=== PATIENT | female | born 1945 | race Caucasian/White ===

== ENCOUNTER → 2017-02-10 | Outpatient (CLI) | payer OTHER ==
[~2017-02-10] MED LIST: ANT125 PO; LEVO125T39 PO; LISI-1116 PO; METF500T PO; RANI150T3 PO; SERT100T PO; [UNRECOGNIZED DRUG - REMARK] PO
[2017-02-10 14:11] LABS: BASO ABS # 0.06 K/uL (0-0.2); EOS % 2.9 %; EOS ABS # 0.18 K/uL (0-0.5); HEMATOCRIT 40.4 % (37-47); HEMOGLOBIN 13.2 g/dL (12.0-16.0); IG# 0.02 K/uL (0.00-0.02); LYMPH % 38.7 %; MEAN CELL VOLUME 88.2 fL (80-100); MEAN CORPUSCULAR HEMOGLOBIN 28.8 pg (25-34); MEAN CORPUSCULAR HGB CONC 32.7 g/dl (32-36); MONO % 5.3 %; MONO ABS # 0.33 K/uL (0.11-0.59); NEUT % 51.8 %; NEUT ABS # 3.21 K/uL (1.4-6.5); PLATELET COUNT 266 K/uL (130-400); RED CELL DISTRIBUTION WIDTH CV 13.8 % (11.5-14.5); RED CELL DISTRIBUTION WIDTH SD 44.4 fL (36.4-46.3)
[2017-02-10 17:05] LABS: ALBUMIN 3.8 gm/dl (3.4-5.0); BLOOD UREA NITROGEN 11 mg/dl (7-18); CARBON DIOXIDE 30 mmol/L (21-32); CHOLESTEROL 206 mg/dl (0-200); CREATININE 0.53 mg/dl (0.60-1.20); GLUCOSE 78 mg/dl (70-99); POTASSIUM 3.8 mmol/L (3.5-5.1); SODIUM 139 mmol/L (136-145); URIC ACID 3.8 mg/dl (2.6-7.2)
[2017-02-10 17:15] LABS: ALKALINE PHOSPHATASE 42 U/L (45-117); ALT/SGPT 21 U/L (12-78); AST/SGOT 9 U/L (15-37); LDL CHOLESTEROL CALCULATED 133 mg/dl; TOTAL PROTEIN 7.1 gm/dl (6.4-8.2); TRANSFERRIN 276 mg/dl (200-360)
--- NOTE | 2017-02-15 12:27 | CODING QUERY MEDICAL NECESSITY ---
CQSUPPORTING DIAGNOSIS NEEDED A supporting diagnosis is required for the test/procedure performed on this patient in order for us to be reimbursed by the patient's insurance. Please provide a supporting diagnosis for the following test/procedure listed below next to the test name along with your signature. *If there is no additional diagnosis for this patient that would support the following test/procedure please document that below next to the test/procedure. Test(s)/Procedure(s) that require a supporting diagnosis: DOS 02/10/17 GLYCATED HEMOGLOBIN TEST Provider Signature: Date: Thank you Gracy Jiménez Health Information Management Once completed, please kindly fax back to [phone] For questions please call [phone]
== END | disposition home or self-care (01) ==
LOC: C.LAB1850 12:08
PROVIDERS: ATTEND Family Medicine
DX: E88.81 Metabolic syndrome and other insulin resistance (principal); E55.9 Vitamin D deficiency, unspecified; D51.9 Vitamin B12 deficiency anemia, unspecified; E78.9 Disorder of lipoprotein metabolism, unspecified; R53.83 Other fatigue

== ENCOUNTER 2024-12-23 02:05 | Inpatient (IN) ==
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
[2024-12-23] MEDS: MoRPHine SULFATE 4 MG/ML 1 ML CARP\\VIAL IV STA ×2 (02:34→05:34)
[2024-12-23] MEDS: ONDANSETRON INJ 2 MG/ML 2 ML VIAL IV STA (02:34)
[2024-12-23 02:41] LABS: Hematocrit (blood only) 45.8 % (37.0-47.0); Hemoglobin 15.0 g/dL (12.0-16.0); Immature Granulocytes # (auto) 0.06 K/uL (0.01-0.20); Immature Granulocytes % (auto) 0.5 %; Mean Corpuscular Hemoglobin 27.9 pg (25.0-34.0); Mean Corpuscular Volume 85.3 fL (80.0-100.0); Platelet Count 271 K/uL (130-400); RDW Standard Deviation 41.1 fL (36.4-46.3); Red Blood Count 5.37 M/uL (4.20-5.40); White Blood Count 10.94 K/ul (4.8-10.8)
[2024-12-23 02:59] LABS: Alanine Aminotransferase 16 U/L (7-52); Albumin Globulin Ratio 1.4 (0.9-2); Albumin Level 4.3 gm/dl (3.4-5.0); Alkaline Phosphatase 50 U/L (34-104); Anion Gap 9 (3-11); Bilirubin,Total 0.8 mg/dl (0.2-1.0); Blood Urea Nitrogen 20 mg/dl (6-23); Calcium 9.8 mg/dl (8.6-10.3); Carbon Dioxide 32 mmol/L (21-32); Chloride 96 mmol/L (98-107); Globulin 3.1 gm/dl (2.5-4.0); Glucose 177 mg/dl (70-99(Fasting)); Lipase 5 U/L (11-82); Potassium 3.4 mmol/L (3.5-5.1); Sodium 137 mmol/L (136-145); Total Protein 7.4 gm/dl (6.0-8.3)
[2024-12-23] MEDS: SODIUM CHLORIDE 0.9% 1,000 ML IV ONE (03:00)
[2024-12-23 03:18] LABS: INR 1.0 (0.9-1.1); Prothrombin Time 10.6 Seconds (9.0-12.0)
[2024-12-23] MEDS: OPTIRAY 320 100ml IV ONE (04:09)
[2024-12-23 04:55] LABS: Appearance Urine Clear (Clear); Glucose Urine UA Negative (Negative)
--- NOTE | 2024-12-23 05:43 | CT Scan Report ---
EXAM: CT abd pelvis IV con only CLINICAL HISTORY: mid abd pain, N/V TECHNIQUE: Multiple contiguous axial images were obtained from the level of diaphragm to the pubis symphysis. This study was acquired after the IV administration of iodinated contrast material, given the patient's indications for the examination. If IV contrast material had not been administered, the likelihood of detecting abnormalities relevant to the patient's condition would have been substantially decreased. Coronal and sagittal reformatted images were generated and reviewed to improve anatomic localization and optimize lesion detection. CT scan was performed according to ALARA (as low as reasonable achievable). COMPARISON: None. FINDINGS: The visualized lung bases are clear. The liver is normal in size and attenuation. No focal liver lesions are seen. There is no intra or extrahepatic biliary ductal dilatation. Hepatic vasculature is patent. The gallbladder is partially distended and shows a calculus measuring 19mm with a peripheral hyperdense rim. The spleen, pancreas, and adrenal glands are unremarkable. The kidneys are normal in size and attenuation. There is no hydronephrosis or perinephric fat stranding. Few well defined thin walled simple cortical cysts are seen in the right kidney largest measuring 25mm. No renal calculi are identified. The ureters are normal in caliber and no ureteral calculi are seen. The bladder is mildly distended. Multiple colonic diverticuli are seen. The ileal bowel loops are mildly dilated with few air fluid levels. Maximum ileal diameter is 30mm. Transition point is seen in right pelvic cavity (series 5, image 38 and series 2, image 39). No evidence of focal or diffuse bowel wall thickening. The appendix is visualized and is unremarkable. Mild ascites is seen. No adenopathy or fluid collections are seen. The aorta is normal in caliber and shows atherosclerotic wall calcification. Metallic artifacts are seen arising from the right hip replacement prosthesis. Degenerative changes are seen in the visualised spine. There is grade 1 anterolisthesis of L4 over L5 and L5 over S1. No aggressive appearing osseous lesions are identified. IMPRESSION: 1. Mildly dilated ileal loops with few air fluid levels. Transition point is seen in right pelvic cavity (series 5, image 38 and series 2, image 39) - suggestive of small bowel obstruction. 2. Mild ascites. 3. Colonic diverticulosis. 4. Right renal simple cortical cysts. 5. Cholelithiasis. Electronically signed by Felipe Smith 12-23-2024 05:42 AM
[2024-12-23] MEDS ORDERED: ACETAMINOPHEN 1,000 MG/100 ML VIAL IV PRN (06:28)
[2024-12-23] MEDS ORDERED: ALBUT/IPRATROP 3MG/0.5MG NEB 3 ML VIAL NEB PRN (06:31)
[2024-12-23] MEDS ORDERED: Patient's HEIGHT &/or WEIGHT Needed STA (06:37)
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
[2024-12-23] MEDS: PIPERACILLIN/TAZOBACTAM 4.5 GM/100 ML BAG IV STA (06:57)
[2024-12-23] MEDS: MoRPHine SULFATE 2 MG/ML CARP IV PRN (07:24)
[2024-12-23] MEDS: ONDANSETRON INJ 2 MG/ML 2 ML VIAL IV PRN (07:35)
[2024-12-23] MEDS: LACTATED RINGER'S 1,000 ML IV SCH (07:56)
[2024-12-23] MEDS ORDERED: GLUCAGON FOR INJ 1 MG VIAL SQ PRN (09:12)
[2024-12-23] MEDS ORDERED: DEXTROSE 50% 50 ML SYRINGE IV PRN (09:12)
[2024-12-23] MEDS ORDERED: CARBOHYDRATES FOR HYPOGLYCEMIA PO PRN (09:12)
[2024-12-23] MEDS ORDERED: GLUCOSE 40% GEL 15 GM TUBE PO PRN (09:12)
[2024-12-23] MEDS ORDERED: GLUCOSE 10 TAB/TUBE PO PRN (09:12)
[2024-12-23] MEDS: INSULIN ASPART PER UNIT CHARGE SC SCH ×2 (09:55→11:51)
[2024-12-23] MEDS: PANTOprazole 40 MG/10 ML SYR IV SCH (09:58)
[2024-12-23] MEDS ORDERED: Nursing to Pharmacy Communication SCH (10:15)
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
[2024-12-23] MEDS: FLUTICASONE/VILANTEROL 200/25MCG 14 PUFFS/INHALER INH SCH (10:42)
--- NOTE | 2024-12-23 11:50 | Electrocardiogram Report ---
Test Reason : Blood Pressure : */* mmHG Vent. Rate : 77 BPM Atrial Rate : 77 BPM P-R Int : 176 ms QRS Dur : 74 ms QT Int : 390 ms P-R-T Axes : 46 44 33 degrees QTcB Int : 441 ms Normal sinus rhythm Low voltage QRS Poor R wave progression, consider anterior MO vs. lead placement vs. LVH Abnormal ECG Confirmed by Khanh Watkins ([id number]) on 12/23/2024 11:50:17 AM Referred By: REFERRED SELF Confirmed By: Khanh Watkins
[2024-12-23] MEDS: SODIUM CHLORIDE 0.9% 1,000 ML IV SCH (12:10)
[2024-12-23] MEDS: PIPERACILLIN/TAZOBACTAM 4.5 GM/100 ML BAG IV SCH (12:13)
--- NOTE | 2024-12-23 12:18 | Hospitalist Progress Note ---
Date of Service December 23, 2024 Assessment & Plan (1) Small bowel obstruction: (2) Prediabetes: (3) Hypokalemia: Plan The patient is a 79-year-old female past medical history including sleep disorder, B12 deficiency, mood disorder, GERD, asthma, hypertension, vitamin D deficiency, and hypothyroidism. She reports that about 5 PM earlier this evening she developed abdominal pain, and shortly thereafter had several episodes of vomiting. Due to persistence of the abdominal pain and vomiting, she presented to the ED for assessment. Evaluation in ED included CT scan of the abdomen pelvis which noted small bowel obstruction. She was referred for evaluation for admission and admitted to hospital service. Significant laboratories: WBC 10.4, potassium 3.4, glucose 177, urine specific gravity is greater than 1.045. From the ED patient received the following: Normal saline 1 L bolus, Zofran 4 mg IV, morphine 4 mg IV x 2. #Small bowel obstruction CTAP: mildly dilated ileal loops w/ few air fluid levels, transition point is in right pelvic cavity suggestive of SBO. CBC w/ leukocytosis of 10.94, plan to trend. BMP w/ stable renal function & electrolytes Surgery consulted: if vomiting/belching persists will require NG tube; supportive care & repeat KUB in AM Continue Zosyn Maintain NPO status, continue IVF Pain regimen: Tylenol, Toradol, Morphine for severe pain. #Hyperglycemia in prediabetes- Glucose 177 on admission Hold metformin Place on NovoLog SSI as noted Check a hemoglobin A1c #Asthma/hypoxia Incentive spirometry every hour while awake Continue usual inhalers Advair discus or equivalent albuterol HFA 2 puffs every 6 hours as needed Have DuoNebs available to use every 2 hours as needed #Hypertension/hypokalemia- Hold spironolactone/HCTZ, and aspirin, to resume after able to take p.o. #Mood disorder- While n.p.o., hold sertraline #Hypothyroidism- Resume levothyroxine after able to take p.o. DVT prophylaxis: SCD's Code: full Admission and Anticipated Discharge Date Admission Date: December 23, 2024 Supervising Physician Co-Signing Physician Notes The patient was seen by me. The chart was reviewed. Case discussed with ROMY Kramer. Agree with assessment and plan Brian Guzman was seen & examined this afternoon. Reports she was not nauseous and had no abdominal pain at encounter. reports she had not been feeling well for a few days prior to her vomiting starting. Physical Exam Physical Exam: General: NAD, VS: BP 128/72; P66; R16; T36.6C Resp: normal respiratory effort Abd: soft, no BS auscultated. non tender to palpation Extremities: Moves all extremities, no edema Neuro: A&O x3, Skin: intact, no lesions noted Results & Data Results & Data Vital Signs (Past 12 Hours) Vital Signs Temp Pulse Pulse Pulse Resp BP BP 12/23/24 09:13 36.6 C 12/23/24 09:12 36.6 C 66 16 128/72 12/23/24 08:06 76 22 127/69 12/23/24 07:59 71 18 125/63 12/23/24 07:17 12/23/24 06:30 74 17 125/70 12/23/24 06:26 74 12/23/24 06:00 82 18 119/72 12/23/24 05:30 74 22 131/64 12/23/24 05:00 75 19 135/61 12/23/24 04:30 74 14 117/62 12/23/24 03:30 74 12 112/59 L 12/23/24 03:00 76 14 148/77 H 12/23/24 02:30 78 15 134/82 12/23/24 02:22 12/23/24 02:13 36.3 C L 82 18 134/80 Pulse Ox O2 Del Method O2 Flow Rate 12/23/24 09:13 12/23/24 09:12 92 Room Air 12/23/24 08:06 97 Nasal Cannula 2 12/23/24 07:59 97 Nasal Cannula 2 12/23/24 07:17 88 L Room Air 0 12/23/24 06:30 93 12/23/24 06:26 12/23/24 06:00 12/23/24 05:30 12/23/24 05:00 12/23/24 04:30 89 L 12/23/24 03:30 93 12/23/24 03:00 93 12/23/24 02:30 95 12/23/24 02:22 Room Air 12/23/24 02:13 94 Room Air PG Care Time/CCT Total # of Minutes Spent Total Time Spent with Patient: Total time spent is greater than 50% in coordination of care (as documented) at patient's floor/unit and/or counseling patient: Coding Level of Care Code None Diagnoses Small bowel obstruction K56.609 Prediabetes R73.03 Hypokalemia E87.6
[2024-12-23] MEDS: ALBUTEROL HFA 8 GM INHALER INH PRN (21:33)
[2024-12-23] MEDS: KETOROLAC TROMETHAMINE 15 MG/ML VIAL IV PRN (22:42)
[2024-12-24 06:13] LABS: Hematocrit (blood only) 35.5 % (37.0-47.0); Hemoglobin 11.8 g/dL (12.0-16.0); Immature Granulocytes # (auto) 0.02 K/uL (0.01-0.20); Immature Granulocytes % (auto) 0.3 %; Mean Corpuscular Hemoglobin 28.4 pg (25.0-34.0); Mean Corpuscular Volume 85.5 fL (80.0-100.0); Platelet Count 221 K/uL (130-400); RDW Standard Deviation 41.6 fL (36.4-46.3); Red Blood Count 4.15 M/uL (4.20-5.40); White Blood Count 7.51 K/ul (4.8-10.8)
[2024-12-24 06:42] LABS: Alanine Aminotransferase 10.0 U/L (7-52); Albumin Globulin Ratio 1.8 (0.9-2); Albumin Level 3.3 gm/dl (3.4-5.0); Alkaline Phosphatase 32.0 U/L (34-104); Anion Gap 6.0 (3-11); Bilirubin,Total 0.9 mg/dl (0.2-1.0); Blood Urea Nitrogen 17.0 mg/dl (6-23); Calcium 8.1 mg/dl (8.6-10.3); Carbon Dioxide 32.0 mmol/L (21-32); Chloride 103.0 mmol/L (98-107); Creatinine Clr Calc Pharmacy 67.7 ml/min; Globulin 1.8 gm/dl (2.5-4.0); Glucose 115.0 mg/dl (70-99(Fasting)); Magnesium 1.7 mg/dl (1.7-2.4); Potassium 3.2 mmol/L (3.5-5.1); Sodium 141.0 mmol/L (136-145); Total Protein 5.1 gm/dl (6.0-8.3)
--- NOTE | 2024-12-24 08:23 | XRay Report ---
EXAM: XR KUB/Abdomen 1 view CLINICAL HISTORY: SBO TECHNIQUE: X-ray images of the abdomen were obtained in supine positions. COMPARISON: Prior CT abdomen dated 12/23/2024 was reviewed. FINDINGS: Gas Pattern: Redemonstration of dilated small bowel loops, maximum diameter measures 34 mm suggestive of small bowel obstruction. Soft Tissues: Soft tissues of the abdomen appear normal without evidence of masses or calcifications. Degenerative changes and scoliosis are redemonstrated in the lumbar spine. Right hip prosthesis redemonstrated. IMPRESSION: 1. Redemonstration of dilated small bowel loops, maximum diameter measures 34 mm suggestive of small bowel obstruction, unchanged. 2. Rest of the findings in prior CT not appreciated in the radiograph. Electronically signed by Artem Ruiz 12-24-2024 08:23 AM
[2024-12-24 08:42] LABS: Hemoglobin A1C 6.1 % (4.5-5.6)
--- NOTE | 2024-12-24 09:47 | Hospitalist Progress Note ---
Date of Service December 24, 2024 Assessment & Plan (1) Small bowel obstruction: (2) Prediabetes: (3) Hypokalemia: Plan The patient is a 79-year-old female past medical history including sleep disorder, B12 deficiency, mood disorder, GERD, asthma, hypertension, vitamin D deficiency, and hypothyroidism. She reports that about 5 PM earlier this evening she developed abdominal pain, and shortly thereafter had several episodes of vomiting. Due to persistence of the abdominal pain and vomiting, she presented to the ED for assessment. Evaluation in ED included CT scan of the abdomen pelvis which noted small bowel obstruction. She was referred for evaluation for admission and admitted to hospital service. Significant laboratories: WBC 10.4, potassium 3.4, glucose 177, urine specific gravity is greater than 1.045. From the ED patient received the following: Normal saline 1 L bolus, Zofran 4 mg IV, morphine 4 mg IV x 2. #Small bowel obstruction CTAP: mildly dilated ileal loops w/ few air fluid levels, transition point is in right pelvic cavity suggestive of SBO General surgery consult appreciated: If vomiting/belching persists will require NG tube Supportive care Repeat KUB on the morning of 12/24 shows unchanged small bowel obstruction Readdressed NG tube with patient, who declines, saying that she would not be able to tolerate it Still no BMs; still no passing gas; maintain n.p.o. status Continue IVF with NSS at 80 mL/hr (set to end on 12/26) IV famotidine daily IV Protonix daily Continue Zosyn While hemodynamically stable/no leukocytosis, patient continues to report sweating/chills overnight Pain regimen: Tylenol, Toradol, Morphine for severe pain #Anemia Hgb 11.8 Suspect volume dilution in the setting of IVF Clinically, no signs of active bleeding on physical exam Trend H&H #Hypokalemia Mild; K 3.2 on 12/24 K rider 10 mEq x 3 Continue to hold spironolactone/HCTZ Repeat a.m. BMP #Prediabetes A1c 6.1% on 12/24/2024 Hold metformin NovoLog SSI #Asthma/hypoxia Incentive spirometry every hour while awake Continue usual inhalers Advair discus or equivalent albuterol HFA 2 puffs every 6 hours as needed Have DuoNebs available to use every 2 hours PRN #Mood disorder- Patient reporting increased anxiety and depression while in the hospital Given no NG tube, will give sertraline p.o. x 1 and see how she does #Hypothyroidism- Resume levothyroxine after able to take p.o. Disposition: Continued stay on [facility] Admission and Anticipated Discharge Date Admission Date: December 23, 2024 Supervising Physician Co-Signing Physician Notes I did not see or examine the patient. I verified all jones points and agree with Ethan Ruiz PA-C with the following exceptions and/or additions: None Subjective Mrs. Colbert is in poor spirits this morning. She is starting to feel "hopeless" and like she is not getting any better. She has not had a bowel movement since being in the hospital, and is not currently passing gas. She also feels depressed being off her Zoloft. While she can hear her stomach gurgling, she is still having 7 out of 10 low transverse abdominal pain, which is slightly different from prior. For instance, yesterday, her pain was mainly umbilical with occasional radiation to the back. She characterizes the pain as constant. She is still having nausea, but has not had vomiting since yesterday morning. She has been able to ambulate throughout the hallways without feeling dizziness or lightheadedness. When readdressing NG tube placement, she believes she would be unable to tolerate an NG tube, and would like to defer for now. Patient denies prior history of SBO, but does have history of prior abdominal surgeries (prior ectopic ). ROS: Patient endorses chills/night sweats overnight, low transverse abdominal pain, cough, facial flushing, and nausea. Patient denies passing gas, fever, chest pain, SOB, changes in urinary habits (burning with urination, dysuria, or blood in the urine). Review of Systems Review of Systems: See HPI above Physical Exam Physical Exam: General: no acute distress; anxious; non-toxic appearing; cooperative; SpO2 93% on RA HEENT: normocephalic, atraumatic; PERRLA; vision and hearing intact Neck: supple; trachea midline Skin: warm, dry without signs of tenting; no cyanosis; no rashes, bruising, lesions, or erythema noted CV: chest wall NTP; RRR; S1/S2 normal; no murmurs/rubs/gallops; pulses intact and symmetric at radial, DP, and PT Lungs: no acute respiratory distress; symmetrical chest wall expansion; clear breath sounds across all lung hagan w/o adventitious sounds; no wheezing ABD: Soft, mildly TTP in the umbilical region; no rashes or bruises appreciated the abdomen flanks bilaterally; moderate distention; BS present; no rebound/guarding Back: Negative CVA tenderness MSK: no tics or fasciculations; no edema noted in the LEs b/l, nonerythematous Neuro: A&Ox3; normal mood and affect; fluent speech; sensation intact and symmetric in the LEs b/l Results & Data Results & Data Vital Signs (Past 12 Hours) Vital Signs Temp Pulse Resp BP Pulse Ox O2 Del Method 12/24/24 07:48 36.5 C 73 18 124/68 93 Room Air 12/23/24 22:32 36.9 C 84 16 129/61 90 Room Air PG Care Time/CCT Total # of Minutes Spent Total Time Spent with Patient: Total time spent is greater than 50% in coordination of care (as documented) at patient's floor/unit and/or counseling patient: Coding [place] [address] SUB INP/OBS CARE 2/35MIN Patient Type Established Medical Decision Making Moderate Complexity Diagnoses Small bowel obstruction K56.609 Prediabetes R73.03 Hypokalemia E87.6
--- NOTE | 2024-12-24 11:07 | Surgery Progress Note ---
Date of Service December 24, 2024 Assessment & Plan (1) Small bowel obstruction: Plan: Persistent small bowel obstruction, however patient clinically improving Continue n.p.o., await return of bowel function, if passes flatus may start clear liquids If has any more episodes of vomiting or worsening abdominal pain, would recommend NG tube Surgery will follow, call with questions or concerns Admission and Anticipated Discharge Date Admission Date: December 23, 2024 Subjective Admitted with SBO. Less belching and nausea today, no emesis today. No flatus yet. Feels better but still with some discomfort Physical Exam Constitutional: WD/WN, vitals as above Respiratory: normal respiratory effort, lungs clear to auscultation Cardiovascular: RRR, no murmur, no edema Gastrointestinal (Abdomen): Inspection/Auscultation: + abdomen distended (Mild, improved) Percussion/Palpation: + abdomen tender (Mild right sided abdominal pain, improved) and abdomen soft; no guarding and abdomen not rigid Results & Data Vital Signs (Past 12 Hours) Vital Signs Temp Pulse Resp BP Pulse Ox O2 Del Method 12/24/24 07:48 36.5 C 73 18 124/68 93 Room Air Laboratory Results Laboratory Results - last 24 hr 12/23/24 12/23/24 12/23/24 11:47 18:11 23:42 WBC RBC Hgb Hct MCV MCH MCHC RDW Std Deviation RDW Coeff of Mason Plt Count MPV Immature Gran % (Auto) Neut % (Auto) Lymph % (Auto) [place] % (Auto) Eos % (Auto) Baso % (Auto) Neut # (Auto) Lymph # (Auto) [place] # (Auto) Eos # (Auto) Baso # (Auto) Immature Gran # (Auto) Sodium Potassium Chloride Carbon Dioxide Anion Gap BUN Creatinine Est Cr Clr Drug Dosing eGFR BUN/Creatinine Ratio Glucose POC Glucose 113 H 101 H 126 H Estimat Average Glucose Hemoglobin A1c Calcium Magnesium Total Bilirubin AST ALT Alkaline Phosphatase Total Protein Albumin Globulin Albumin/Globulin Ratio 12/24/24 12/24/24 05:36 05:48 WBC 7.51 RBC 4.15 L Hgb 11.8 L D Hct 35.5 L MCV 85.5 MCH 28.4 MCHC 33.2 RDW Std Deviation 41.6 RDW Coeff of Mason 13.3 Plt Count 221 MPV 9.8 Immature Gran % (Auto) 0.3 Neut % (Auto) 63.7 Lymph % (Auto) 27.7 [place] % (Auto) 6.5 Eos % (Auto) 1.1 Baso % (Auto) 0.7 Neut # (Auto) 4.79 Lymph # (Auto) 2.08 [place] # (Auto) 0.49 Eos # (Auto) 0.08 Baso # (Auto) 0.05 Immature Gran # (Auto) 0.02 Sodium 141 Potassium 3.2 L Chloride 103 Carbon Dioxide 32 Anion Gap 6 BUN 17 Creatinine 0.59 L Est Cr Clr Drug Dosing 67.7 eGFR 92.76 BUN/Creatinine Ratio 28.8 H Glucose 115 H POC Glucose 101 H Estimat Average Glucose 128 Hemoglobin A1c 6.1 H Calcium 8.1 L Magnesium 1.7 Total Bilirubin 0.9 AST 14 ALT 10 Alkaline Phosphatase 32 L Total Protein 5.1 L D Albumin 3.3 L Globulin 1.8 L Albumin/Globulin Ratio 1.8 Diagnostic Findings KUB personally reviewed interpreted and agree with the assessment of dilated small bowel consistent with persistent small bowel obstruction KUB X-Ray 12/24/24 07:00 EXAM: XR KUB/Abdomen 1 view CLINICAL HISTORY: SBO TECHNIQUE: X-ray images of the abdomen were obtained in supine positions. COMPARISON: Prior CT abdomen dated 12/23/2024 was reviewed. FINDINGS: Gas Pattern: Redemonstration of dilated small bowel loops, maximum diameter measures 34 mm suggestive of small bowel obstruction. Soft Tissues: Soft tissues of the abdomen appear normal without evidence of masses or calcifications. Degenerative changes and scoliosis are redemonstrated in the lumbar spine. Right hip prosthesis redemonstrated. IMPRESSION: 1. Redemonstration of dilated small bowel loops, maximum diameter measures 34 mm suggestive of small bowel obstruction, unchanged. 2. Rest of the findings in prior CT not appreciated in the radiograph. Electronically signed by Artem Ruiz 12-24-2024 08:23 AM PG Care Time/CCT Total # of Minutes Spent Total Time Spent with Patient: Total time spent is greater than 50% in coordination of care (as documented) at patient's floor/unit and/or counseling patient: Coding Level of Care Code 64250 SUB INP/OBS CARE 2/35MIN Diagnoses Small bowel obstruction K56.609
[2024-12-24] MEDS: POTASSIUM CHLORIDE / WTR 10 MEQ/100 ML PLCT IV SCH (11:27)
[2024-12-24] MEDS: FAMOTIDINE 20MG IV PUSH 20 MG/5 ML SYR IV STA (11:27)
[2024-12-24] MEDS: SERTRALINE HCL 100 MG TABLET PO ONE (16:22)
--- NOTE | 2024-12-24 18:36 | Communication Note ---
Alerted by nursing staff at 1820 that patient was experiencing worsening abdominal pain, bloating, nausea, and dry heaves. NG tube ordered. Will plan for KUB following insertion to assess placement. Signed out to overnight team. Date of Service: December 24, 2024
--- NOTE | 2024-12-24 20:36 | XRay Report ---
INDICATION: Abdominal pain TECHNIQUE: Portable upright view radiograph of the abdomen was obtained. COMPARISON: Abdominal radiograph from earlier in the same day. FINDINGS: There is an enteric tube coursing below the diaphragm with tip projecting over the gastric body. Multiple loops of small bowel that are moderately air distended without significant change from previous. No radiographic evidence of free air in the upright film. Organ silhouettes are normal in shape and contour. There is no gross mass effect. IMPRESSION: Well-positioned enteric tube. Electronically signed by Denis Kirk 12-24-2024 8:36 PM
[2024-12-25 06:09] LABS: Hematocrit (blood only) 42.6 % (37.0-47.0); Hemoglobin 14.0 g/dL (12.0-16.0); Immature Granulocytes # (auto) 0.11 K/uL (0.01-0.20); Immature Granulocytes % (auto) 1.2 %; Mean Corpuscular Hemoglobin 28.5 pg (25.0-34.0); Mean Corpuscular Volume 86.8 fL (80.0-100.0); Platelet Count 263 K/uL (130-400); RDW Standard Deviation 41.6 fL (36.4-46.3); Red Blood Count 4.91 M/uL (4.20-5.40); White Blood Count 9.08 K/ul (4.8-10.8)
[2024-12-25 06:35] LABS: Alanine Aminotransferase 10.0 U/L (7-52); Albumin Globulin Ratio 1.6 (0.9-2); Albumin Level 3.4 gm/dl (3.4-5.0); Alkaline Phosphatase 33.0 U/L (34-104); Anion Gap 10.0 (3-11); Bilirubin,Total 0.8 mg/dl (0.2-1.0); Blood Urea Nitrogen 13.0 mg/dl (6-23); Calcium 8.3 mg/dl (8.6-10.3); Carbon Dioxide 25.0 mmol/L (21-32); Chloride 106.0 mmol/L (98-107); Creatinine Clr Calc Pharmacy 86.9 ml/min; Globulin 2.1 gm/dl (2.5-4.0); Glucose 103.0 mg/dl (70-99(Fasting)); Magnesium 1.8 mg/dl (1.7-2.4); Potassium 3.5 mmol/L (3.5-5.1); Sodium 141.0 mmol/L (136-145); Total Protein 5.5 gm/dl (6.0-8.3)
--- NOTE | 2024-12-25 08:01 | Hospitalist Progress Note ---
Date of Service December 25, 2024 Assessment & Plan (1) Small bowel obstruction: (2) Prediabetes: (3) Hypokalemia: Plan The patient is a 79-year-old female past medical history including sleep disorder, B12 deficiency, mood disorder, GERD, asthma, hypertension, vitamin D deficiency, and hypothyroidism. She reports that about 5 PM earlier this evening she developed abdominal pain, and shortly thereafter had several episodes of vomiting. Due to persistence of the abdominal pain and vomiting, she presented to the ED for assessment. Evaluation in ED included CT scan of the abdomen pelvis which noted small bowel obstruction. She was referred for evaluation for admission and admitted to hospital service. Significant laboratories: WBC 10.4, potassium 3.4, glucose 177, urine specific gravity is greater than 1.045. From the ED patient received the following: Normal saline 1 L bolus, Zofran 4 mg IV, morphine 4 mg IV x 2. #Small bowel obstruction CTAP: mildly dilated ileal loops w/ few air fluid levels, transition point is in right pelvic cavity suggestive of SBO General surgery consult appreciated Supportive care NG tube inserted on the evening of 12/24, and patient reports significant improvement in her symptoms following insertion Still no BMs yet today on 12/25; still not passing gas Maintain n.p.o. status IVF switched from NSS -> D5LR at 80 mL/hr Procalcitonin negative; no leukocytosis; afebrile; hemodynamically stable; discontinue Zosyn IV famotidine daily IV Protonix daily Pain regimen: Tylenol, Toradol, Morphine for severe pain Repeat KUB ordered for the morning of 12/26 #Prediabetes A1c 6.1% on 12/24/2024 Hold metformin NovoLog SSI BSG q6h while NPO / on D5LR Adjust regimen as needed #Asthma/hypoxia Incentive spirometry every hour while awake Continue usual inhalers Advair discus or equivalent albuterol HFA 2 puffs every 6 hours as needed Have DuoNebs available to use every 2 hours PRN #Mood disorder Hold sertraline #Hypothyroidism Resume levothyroxine after able to take p.o. Disposition: Continued stay on [facility] Admission and Anticipated Discharge Date Admission Date: December 23, 2024 Supervising Physician Co-Signing Physician Notes I did not see or examine the patient. I verified all jones points and agree with Ethan Joseph, PA-C with the following exceptions and/or additions: None Subjective Mrs. Colbert reports her symptoms are much improved after the NG tube was inserted last night. She reports approximately 1 hour after insertion, her abdominal pain started to improve, and her nausea/dry heaving resolved. She says she "slept like a log" last night. She has 0 out of 10 abdominal pain at this time, and only has pain around her umbilicus when she palpates it. She required small amount of Toradol this morning, but is happy to report she has not required any morphine. Family at bedside have several questions regarding surgery versus no surgery. Patient is still not passing gas. No bowel movements yet while in the hospital. ROS: Patient endorses headache this morning. Patient denies fevers overnight, chills, night sweats, dizziness/lightheadedness with walking, chest pain, SOB, cough, abdominal pain at rest, nausea, vomiting, burning with nation, blood in the urine, or numbness or tingling of the legs. Review of Systems Review of Systems: See HPI above Physical Exam Physical Exam: General: no acute distress; pleasant affect; family at bedside; non-toxic appearing; cooperative; SpO2 94% on RA HEENT: normocephalic, atraumatic; NG tube in place draining GI contents; PERRLA; vision and hearing intact Neck: supple; trachea midline Skin: warm, dry without signs of tenting; no cyanosis; no rashes, bruising, lesions, or erythema noted CV: chest wall NTP; RRR; S1/S2 normal; no murmurs/rubs/gallops; pulses intact and symmetric at radial, DP, and PT Lungs: no acute respiratory distress; symmetrical chest wall expansion; clear breath sounds across all lung hagan w/o adventitious sounds; no wheezing ABD: Soft, mildly TTP in the umbilical region; no rashes or bruises appreciated the abdomen flanks bilaterally; moderate distention; BS present; no rebound/gu arding MSK: no tics or fasciculations; no edema noted in the LEs b/l, nonerythematous Neuro: A&Ox3; normal mood and affect; fluent speech; sensation intact and symmetric in the LEs b/l Results & Data Results & Data Vital Signs (Past 12 Hours) Vital Signs Temp Pulse Resp BP Pulse Ox O2 Del Method 12/24/24 23:23 36.9 C 82 18 155/82 H 93 Room Air PG Care Time/CCT Total # of Minutes Spent Total Time Spent with Patient: Total time spent is greater than 50% in coordination of care (as documented) at patient's floor/unit and/or counseling patient: Coding [place] [address] SUB INP/OBS CARE 2/35MIN Patient Type Established Medical Decision Making Moderate Complexity Diagnoses Small bowel obstruction K56.609 Prediabetes R73.03 Hypokalemia E87.6
[2024-12-25] MEDS: D5W AND LACTATED RINGERS 1,000 ML IV SCH (09:03)
[2024-12-25] MEDS: LACTATED RINGER'S 1,000 ML IV SCH (09:57)
[2024-12-25] MEDS: FAMOTIDINE 20MG IV PUSH 20 MG/5 ML SYR IV SCH (10:05)
--- NOTE | 2024-12-25 12:30 | Surgery Progress Note ---
Date of Service December 25, 2024 Assessment & Plan (1) Small bowel obstruction: Plan: Seems to be improving with conservative management. Will repeat KUB tomorrow. If no continued improvement potential small bowel follow-through on Admission and Anticipated Discharge Date Admission Date: December 23, 2024 Subjective Patient seen. He was feeling terrible last night but an NG tube was placed and now she is feeling much better today. Much less abdominal distention. Currently no nausea Physical Exam Constitutional: WD/WN, vitals as above no acute distress and not ill appearing Eyes: PERRL, conjunctivae normal, anicteric sclerae EOM intact bilaterally ENMT: external ear and nose normal, oropharynx normal Ears: no hearing impairment Neck: trachea midline, no thyromegaly Respiratory: normal respiratory effort; no respiratory distress and does not use accessory muscles Cardiovascular: Rate/Rhythm: regular rate and regular rhythm Gastrointestinal (Abdomen): Soft. Mild distention. Mild tenderness to deep palpation. Much improved according to the patient Skin: no rashes, warm and dry Psychiatric: Orientation: alert, oriented x 3 and cooperative Results & Data Vital Signs (Past 12 Hours) Vital Signs Temp Pulse Resp BP Pulse Ox O2 Del Method 12/25/24 08:28 37.2 C 92 H 18 144/73 H 94 Room Air PG Care Time/CCT Total # of Minutes Spent Total Time Spent with Patient: Total time spent is greater than 50% in coordination of care (as documented) at patient's floor/unit and/or counseling patient: Coding Level of Care Code 64644 SUB INP/OBS CARE 03/03MIN Diagnoses Small bowel obstruction K56.609
[2024-12-26 06:14] LABS: Hematocrit (blood only) 38.9 % (37.0-47.0); Hemoglobin 12.8 g/dL (12.0-16.0); Immature Granulocytes # (auto) 0.07 K/uL (0.01-0.20); Immature Granulocytes % (auto) 1.0 %; Mean Corpuscular Hemoglobin 28.0 pg (25.0-34.0); Mean Corpuscular Volume 85.1 fL (80.0-100.0); Platelet Count 240 K/uL (130-400); RDW Standard Deviation 40.7 fL (36.4-46.3); Red Blood Count 4.57 M/uL (4.20-5.40); White Blood Count 7.10 K/ul (4.8-10.8)
[2024-12-26 06:30] LABS: Alanine Aminotransferase 10.0 U/L (7-52); Albumin Globulin Ratio 1.6 (0.9-2); Albumin Level 3.3 gm/dl (3.4-5.0); Alkaline Phosphatase 29.0 U/L (34-104); Anion Gap 8.0 (3-11); Bilirubin,Total 0.7 mg/dl (0.2-1.0); Blood Urea Nitrogen 12.0 mg/dl (6-23); Calcium 8.8 mg/dl (8.6-10.3); Carbon Dioxide 29.0 mmol/L (21-32); Chloride 105.0 mmol/L (98-107); Creatinine Clr Calc Pharmacy 90.8 ml/min; Globulin 2.1 gm/dl (2.5-4.0); Glucose 138.0 mg/dl (70-99(Fasting)); Magnesium 1.6 mg/dl (1.7-2.4); Potassium 3.0 mmol/L (3.5-5.1); Sodium 142.0 mmol/L (136-145); Total Protein 5.4 gm/dl (6.0-8.3)
[2024-12-26] MEDS: POTASSIUM CHLORIDE / WTR 10 MEQ/100 ML PLCT IV SCH (10:15)
--- NOTE | 2024-12-26 10:16 | XRay Report ---
KUB HISTORY: sbo COMPARISON STUDY: 12/24/2024 FINDINGS: Nasogastric tube tip is in the proximal body of the stomach. There are multiple dilated loo ps of small bowel measuring up to 4.5 cm diameter, grossly stable. No colonic distention seen. IMPRESSION: Stable small bowel distention. ACT 112: Negative or not required by law. The above report was generated using voice recognition software. It may contain grammatical, syntax o r spelling errors. Electronically signed by: Henry Pastor M.D. 12/26/2024 10:15 AM
[2024-12-26] MEDS: MAGNESIUM SULFATE / D5W 1 GM/100 ML BAG IV ONE (10:23)
--- NOTE | 2024-12-26 10:57 | Surgery Progress Note ---
<Statement entered by Cesar Segura MD - 12/26/24 13:02> I independently saw the patient and I agree with the assessment and plan of care Date of Service December 26, 2024 Assessment & Plan (1) Small bowel obstruction: Plan: Pt with history of ectopic here with SBO NGT placed two nights ago; she remains with feelings of bloating and belching, no return of bowel function yet KUB this AM showed stable small bowel distention Will keep NGT for today and NPO with IVF Encourage OOB ambulating as able, may clamp NGT to walk the halls We will order a small bowel follow through for tomorrow Admission and Anticipated Discharge Date Admission Date: December 23, 2024 Subjective Patient reports feeling like she blew up "like a pumpkin" overnight. She thinks this made her breathing feel more short of breath. She states her pain is about a 6-7 which is on par with yesterday. No n/v but continues to belch. No return of bowel function. Physical Exam Physical Exam: awake, alert, no distress Respiratory: normal respiratory effort saturating well on room air Gastrointestinal (Abdomen): Inspection/Auscultation: + abdomen distended (mild) Percussion/Palpation: + abdomen tender (some discomfort to palpation, mostly mid/lower abdomen ) and abdomen soft NGT in place Results & Data Vital Signs (Past 12 Hours) Vital Signs Temp Pulse Resp BP Pulse Ox O2 Del Method 12/26/24 07:00 98.6 F 70 158/83 H 94 Room Air 12/25/24 23:00 98.6 F 72 14 167/70 H 94 Room Air PG Care Time/CCT Total # of Minutes Spent Total Time Spent with Patient: Total time spent is greater than 50% in coordination of care (as documented) at patient's floor/unit and/or counseling patient: Coding Level of Care Code 47155 SUB INP/OBS CARE 03/03MIN Diagnoses Small bowel obstruction K56.609
--- NOTE | 2024-12-26 11:38 | Hospitalist Progress Note ---
Date of Service December 26, 2024 Assessment & Plan (1) Small bowel obstruction: (2) Prediabetes: (3) Hypokalemia: Plan The patient is a 79-year-old female past medical history including sleep disorder, B12 deficiency, mood disorder, GERD, asthma, hypertension, vitamin D deficiency, and hypothyroidism. She reports that about 5 PM earlier this evening she developed abdominal pain, and shortly thereafter had several episodes of vomiting. Due to persistence of the abdominal pain and vomiting, she presented to the ED for assessment. Evaluation in ED included CT scan of the abdomen pelvis which noted small bowel obstruction. She was referred for evaluation for admission and admitted to hospital service. Significant laboratories: WBC 10.4, potassium 3.4, glucose 177, urine specific gravity is greater than 1.045. From the ED patient received the following: Normal saline 1 L bolus, Zofran 4 mg IV, morphine 4 mg IV x 2. #Small bowel obstruction CTAP: mildly dilated ileal loops w/ few air fluid levels, transition point is in right pelvic cavity suggestive of SBO Supportive care NG tube inserted on the evening of 12/24, and patient reports significant improvement in her symptoms following insertion Still no BMs yet today on 12/25; still not passing gas Maintain n.p.o. status IVF switched from NSS -> D5LR at 80 mL/hr Procalcitonin negative; no leukocytosis; afebrile; hemodynamically stable; discontinue Zosyn IV famotidine daily IV Protonix daily Pain regimen: Tylenol, Toradol, Morphine for severe pain KUB on 12/24 revealed SBO with max dilation 3.4 cm Repeat KUB on the morning of 12/26 showed grossly stable SBO with maximum dilation 4.5 cm General Surgery consult appreciated Small bowel follow-through planned for tomorrow on 12/27 #Hypokalemia | hypomagnesemia Mild; replete with K riders and magnesium sulfate IV as needed Suspected due to GI losses/NG tube #Prediabetes A1c 6.1% on 12/24/2024 Hold metformin NovoLog SSI BSG q6h while NPO / on D5LR Adjust regimen as needed #Asthma/hypoxia Incentive spirometry every hour while awake Continue usual inhalers Advair discus or equivalent albuterol HFA 2 puffs every 6 hours as needed Have DuoNebs available to use every 2 hours PRN #Mood disorder Hold sertraline #Hypothyroidism Resume levothyroxine after able to take p.o. Dis[facility] Admission and Anticipated Discharge Date Admission Date: December 23, 2024 Supervising Physician Co-Signing Physician Notes Attending Attestation: Chart reviewed, care plan d/w ROMY Ruiz. I agree w/ the jones components of his documentation. Appreciate gen surg assistance. Faraz Damon MD Subjective Mrs. Colbert is in good spirits this morning. However last night she had difficulty with pain as well as breathing. She felt like something was pressing up on her diaphragm, as if a "pumpkin" were cramped in her stomach. She reports her pain is 6 out of 10 at its worst, but she is not having pain at this time. Toradol has been helping to control the pain, and she has not required morphine over the past 48 hours. She denies any nausea or vomiting, but does have abdominal pressure and burping. No bowel movements yet. No passing gas. ROS: Patient endorses abdominal pain/bloating/pressure, and occasional SOB at rest. Patient denies fever, night sweats, nausea, vomiting, diarrhea, bowel movements, chest pain, cough, pleuritic CP, lightheadedness with ambulation, or changes in urinary habits. Review of Systems Review of Systems: See HPI above Physical Exam Physical Exam: General: no acute distress; pleasant affect; daughter at bedside; non-toxic appearing; cooperative; SpO2 94% on RA HEENT: normocephalic, atraumatic; NG tube in place draining GI contents; PERRLA; vision and hearing intact Neck: supple; trachea midline Skin: warm, dry without signs of tenting; no cyanosis; no rashes, bruising, lesions, or erythema noted CV: chest wall NTP; RRR; S1/S2 normal; no murmurs/rubs/gallops; pulses intact and symmetric at radial, DP, and PT Lungs: no acute respiratory distress; symmetrical chest wall expansion; clear breath sounds across all lung hagan w/o adventitious sounds; no wheezing ABD: Soft, mildly TTP in the umbilical region; no rashes or bruises appreciated the abdomen flanks bilaterally; moderate distention; BS present; no reboun d/guarding MSK: no tics or fasciculations; no edema noted in the LEs b/l, nonerythematous Neuro: A&Ox3; normal mood and affect; fluent speech; sensation intact and symmetric in the LEs b/l Results & Data Results & Data Vital Signs (Past 12 Hours) Vital Signs Temp Pulse BP Pulse Ox O2 Del Method 12/26/24 07:00 37.0 C 70 158/83 H 94 Room Air PG Care Time/CCT Total # of Minutes Spent Total Time Spent with Patient: Total time spent is greater than 50% in coordination of care (as documented) at patient's floor/unit and/or counseling patient: Coding [place] [address] SUB INP/OBS CARE 3/50MIN Patient Type Established Medical Decision Making High Complexity Diagnoses Small bowel obstruction K56.609 Prediabetes R73.03 Hypokalemia E87.6
[2024-12-27 09:58] LABS: Hematocrit (blood only) 43.9 % (37.0-47.0); Hemoglobin 14.2 g/dL (12.0-16.0); Mean Corpuscular Hemoglobin 27.9 pg (25.0-34.0); Mean Corpuscular Volume 86.2 fL (80.0-100.0); Platelet Count 275 K/uL (130-400); RDW Standard Deviation 40.7 fL (36.4-46.3); Red Blood Count 5.09 M/uL (4.20-5.40); White Blood Count 7.26 K/ul (4.8-10.8)
[2024-12-27 10:06] LABS: Anion Gap 7.0 (3-11); Blood Urea Nitrogen 5.0 mg/dl (6-23); Calcium 9.5 mg/dl (8.6-10.3); Carbon Dioxide 33.0 mmol/L (21-32); Chloride 104.0 mmol/L (98-107); Creatinine Clr Calc Pharmacy 86.9 ml/min; Glucose 117.0 mg/dl (70-99(Fasting)); Magnesium 1.7 mg/dl (1.7-2.4); Potassium 3.3 mmol/L (3.5-5.1); Sodium 144.0 mmol/L (136-145)
[2024-12-27] MEDS: POTASSIUM CHLORIDE / WTR 10 MEQ/100 ML PLCT IV SCH (11:30)
--- NOTE | 2024-12-27 12:43 | Hospitalist Progress Note ---
Date of Service December 27, 2024 Assessment & Plan (1) Small bowel obstruction: (2) Prediabetes: (3) Hypokalemia: Plan The patient is a 79-year-old female past medical history including sleep disorder, B12 deficiency, mood disorder, GERD, asthma, hypertension, vitamin D deficiency, and hypothyroidism. She reports that about 5 PM earlier this evening she developed abdominal pain, and shortly thereafter had several episodes of vomiting. Due to persistence of the abdominal pain and vomiting, she presented to the ED for assessment. Evaluation in ED included CT scan of the abdomen pelvis which noted small bowel obstruction. She was referred for evaluation for admission and admitted to hospital service. Significant laboratories: WBC 10.4, potassium 3.4, glucose 177, urine specific gravity is greater than 1.045. From the ED patient received the following: Normal saline 1 L bolus, Zofran 4 mg IV, morphine 4 mg IV x 2. #Small bowel obstruction CTAP: mildly dilated ileal loops w/ few air fluid levels, transition point is in right pelvic cavity suggestive of SBO Supportive care NG tube inserted on the evening of 12/24, and patient reports significant improvement in her symptoms following insertion Still no BMs yet today on 12/25; still not passing gas Maintain n.p.o. status IVF switched from NSS -> D5LR at 80 mL/hr Procalcitonin negative; no leukocytosis; afebrile; hemodynamically stable; discontinue Zosyn IV famotidine daily IV Protonix daily Pain regimen: Tylenol, Toradol, Morphine for severe pain General Surgery consult appreciated Underwent small bowel follow-through on 12/27 Revealed high-grade SBO with prolonged retention of contrast within the stomach Exploratory laparotomy SBO planned for this afternoon #Hypokalemia | hypomagnesemia Mild; replete with K riders and magnesium sulfate IV as needed Suspected due to GI losses/NG tube #Prediabetes A1c 6.1% on 12/24/2024 Hold metformin NovoLog SSI BSG q6h while NPO / on D5LR Adjust regimen as needed #Asthma/hypoxia Incentive spirometry every hour while awake Continue usual inhalers Advair discus or equivalent albuterol HFA 2 puffs every 6 hours as needed Have DuoNebs available to use every 2 hours PRN #Mood disorder Hold sertraline #Hypothyroidism Resume levothyroxine after able to take p.o. Disposition: Continued stay on [facility]; planning for laparotomy on 12/27 Admission and Anticipated Discharge Date Admission Date: December 23, 2024 Supervising Physician Co-Signing Physician Notes Attending Attestation: Chart reviewed, care plan d/w ROMY Ruiz. I agree w/ the jones components of his documentation. Faraz Damon MD Subjective Patient had a poor reaction after receiving dye for her small bowel follow- through earlier today. She reports after taking the dye, she felt "miserable" and started regurgitating the dye. She was feeling nauseous with severe abdominal pain. Upon return to the room, nursing staff reportedly suctioned 750 cc out of her stomach, and she began to feel much better. She reports her abdominal pain is a 3 out of 10 at present, and reports that the morphine has been helping. She is also happy to report that she was passing some gas this morning. Still no bowel movements. She is amenable to undergoing exploratory laparotomy at this time given severity of her small bowel obstruction, and no real improvements. She has had prior abdominal surgery (ectopic ), reports she has no problems with anesthesia. She denies prior cardiac history (no stroke, NV, or history of CHF). ROS: Patient endorses abdominal pain, and nausea after receiving dye for SBO follow- through. Patient denies fever, chills, night sweats, chest pain, SOB, cough, vomiting, changes in urinary habits, or bowel movements. Review of Systems Review of Systems: See HPI above Physical Exam Physical Exam: General: no acute distress; pleasant affect; standing on the side of her bed folding her sheets; non-toxic appearing; cooperative; SpO2 95% on RA HEENT: normocephalic, atraumatic; NG tube in place draining dark green GI contents; PERRLA; vision and hearing intact Neck: supple; trachea midline Skin: warm, dry without signs of tenting; no cyanosis; no rashes, bruising, lesions, or erythema noted CV: chest wall NTP; RRR; S1/S2 normal; no murmurs/rubs/gallops; pulses intact and symmetric at radial, DP, and PT Lungs: no acute respiratory distress; symmetrical chest wall expansion; clear breath sounds across all lung hagan w/o adventitious sounds; no wheezing ABD: Soft, mildly TTP in the umbilical region; no rashes or bruises appreciated the abdomen flanks bilaterally; moderate distention; BS present; no rebound/guarding MSK: no tics or fasciculations; no edema noted in the LEs b/l, nonerythematous Neuro: A&Ox3; normal mood and affect; fluent speech; sensation intact and symmetric in the LEs b/l Results & Data Results & Data Vital Signs (Past 12 Hours) Vital Signs Temp Pulse Resp BP Pulse Ox O2 Del Method 12/27/24 07:26 36.9 C 69 17 180/72 H 95 Room Air PG Care Time/CCT Total # of Minutes Spent Total Time Spent with Patient: Total time spent is greater than 50% in coordination of care (as documented) at patient's floor/unit and/or counseling patient: Coding [place] [address] SUB INP/OBS CARE 3/50MIN Patient Type Established Medical Decision Making High Complexity Diagnoses Small bowel obstruction K56.609 Prediabetes R73.03 Hypokalemia E87.6
--- NOTE | 2024-12-27 13:06 | Fluoroscopy Report ---
SMALL BOWEL FOLLOW-THROUGH CLINICAL HISTORY: Small bowel obstruction. COMPARISON STUDY: Abdominal x-ray dated 12/26/2024. Abdominal CT dated 12/23/2024. TECHNIQUE: An abdominal biology laboratory assistant radiograph was obtained. Approximately 600 cc of dilute Optiray 320 (a 50/50 mix of Optiray 320 and water) was injected through the enteric tube and a small bowel follow-th rough was initiated. Overhead radiographs were obtained at 00 minutes, 30 minutes, 1.5 hours, and 2.5 hours. The examination was discontinued at that time as per the referring clinician. 5 total radiogr aphs were obtained. FINDINGS: The abdominal biology laboratory assistant radiograph shows an enteric tube projecting below the diaphragm over the mid to d istal stomach. There are distended and gas-filled loops of small bowel which measure up to [address] This is consistent with a small bowel obstruction. There is a paucity of gas in the colon. No ev idence of intraperitoneal free air is seen. Calcified gallstones are noted in the right upper quadran t. There are numerous pelvic phleboliths. The skeletal structures are osteopenic. There is lumbosacra l spondylosis and scoliosis. A right hip arthroplasty is in place and postsurgical change is noted in the right acetabulum. On the small bowel follow-through images there is persistent dilatation of the proximal small bowel l oops with prolonged retention of contrast within the stomach and proximal loops. Contrast had reached the mid to distal small bowel by 2.5 hours. No contrast was seen in the colon at this time. The exam ination was then discontinued. IMPRESSION: 1. High-grade small bowel obstruction with prolonged retention of contrast within the stomach and pro ximal small bowel. 2. Contrast reached the mid to distal small bowel by 2.5 hours. The examination was discontinued at t hat time. 3. Cholelithiasis. ACT 112: Negative or not required by law. Electronically signed by: Keith Vivas M.D. 12/27/2024 1:04 PM
--- NOTE | 2024-12-27 13:35 | Surgery Progress Note ---
Date of Service December 27, 2024 Assessment & Plan (1) Small bowel obstruction: Plan: On imaging with the small bowel follow-through she appears to have a rather severe acute small bowel obstruction. She has failed to test clinically as well. We discussed her options. Will proceed today with a diagnostic laparoscopy possible open release of small bowel obstruction. We discussed potential risks which include bleeding infection injury to other organ blood clots etc. I have answered all of her questions. She agrees with the plan. Will proceed this afternoon Admission and Anticipated Discharge Date Admission Date: December 23, 2024 Subjective Patient seen. Small bowel follow-through initiated today. She began getting distended and had rather severe pain. She was reconnected to NG tube suction. Currently feeling okay. Physical Exam Physical Exam: Alert. Mild distress secondary to abdominal distention discomfort Increased abdominal distention No peritonitis Results & Data Vital Signs (Past 12 Hours) Vital Signs Temp Pulse Resp BP Pulse Ox O2 Del Method 12/27/24 07:26 36.9 C 69 17 180/72 H 95 Room Air PG Care Time/CCT Total # of Minutes Spent Total Time Spent with Patient: Total time spent is greater than 50% in coordination of care (as documented) at patient's floor/unit and/or counseling patient: Coding Level of Care Code 39959 SUB INP/OBS CARE 03/03MIN Diagnoses Small bowel obstruction K56.609
[2024-12-27] MEDS ORDERED: LIDOCAINE 2% 2 ML VIAL/AMP(20MG/ML) INFIL ONE (15:38)
[2024-12-27] MEDS ORDERED: ROCURONIUM BROMIDE 10 MG/ML 5 ML VIAL IV ONE (15:38)
[2024-12-27] MEDS ORDERED: PROPOFOL IV EMULSION 10 MG/ML 20 ML VIAL IV ONE (15:38)
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
[2024-12-27] MEDS ORDERED: ATROPINE SULFATE 0.1 MG/ML 10ML SYR IV PRN (16:17)
[2024-12-27] MEDS ORDERED: PROMETHAZINE HCL 6.25 MG in SODIUM CHLORIDE 0.9% 50 ML IV PRN (16:17)
[2024-12-27] MEDS ORDERED: SUCCINYLCHOLINE CHLORIDE 20 MG/ML 10 ML VIAL IV ONE (16:55)
[2024-12-27] MEDS ORDERED: ceFAZolin 330 MG/ML 1 GM VIAL ONE ×2 (17:12)
[2024-12-27] MEDS ORDERED: ONDANSETRON INJ 2 MG/ML 2 ML VIAL ONE (17:24)
[2024-12-27] MEDS ORDERED: DEXAMETHASONE SOD INJ 4 MG/ML VIAL ONE (17:24)
[2024-12-27] MEDS ORDERED: SUGAMMADEX SODIUM 200 MG/2 ML VIAL IV ONE (17:48)
[2024-12-27] MEDS: BUPIVACAINE/EPINEPHRINE 0.5% MPF 1:200,000 30 ML VIAL ONE (17:56)
[2024-12-27] MEDS ORDERED: PHENYLEPHRINE HCL 10 MG/ML VIAL ONE (18:08)
--- NOTE | 2024-12-27 18:27 | Operative Report ---
PG Post Operative Report Pre & Post Diagnosis Operation Date: 12/27/24 15:10 Pre-Op Diagnosis: Small bowel obstruction Post-Op Diagnosis: Small bowel obstruction;adhesions I identified the patient and participated in the time-out.: Yes Procedure Operation Date: 12/27/24 15:10 Actual Procedures p Diagnostic Laparoscopy, Enterolysis, Release of Small Bowel Obstruction(Not Applicable) - Benjamin Pizano DO Surgeon Benjamin Pizano DO Grievance Coordinator OR staff Estimated Blood Loss 5 Findings Consistent with Post-Op Diagnosis Specimens none Description of Procedure After informed consent was obtained the patient was taken to the operating room and placed in supine position. After successful intubation a Gross catheter was placed and the abdomen was sterilely prepped and draped in usual fashion. I began with an upper midline incision with an 11 blade scalpel. This was carried down through the soft tissue using cautery. Anterior fascia was opened using cautery and two #0 Vicryl stay sutures were placed. Finger penetration was used to enter the peritoneum and a finger sweep performed. A 12 mm trocar was placed and the abdomen insufflated to 18 mmHg. I inserted the laparoscope. There was dilated small bowel throughout the abdomen. There was a Small amount of free fluid in the pelvis. I placed a left upper quadrant 5 mm trocar and a left mid abdominal 5 mm trocar. The patient was placed in the a Trendelenburg position. I began by looking in the right lower quadrant my plan was to start at the cecum and work backwards. Right at the terminal ileum was the actual problem. There was an adhesive band extending from the mesentery of the terminal ileum/cecal junction across a piece of small bowel causing complete obstruction. It was small however a quite tight band. I was able to use the harmonic scalpel to divide it and instantly release the obstruction. There was some serosal damage from the band. Although not full-thickness and probably unnecessary I decided to oversew it. I used 3-0 Polysorb to oversew this. Next I ran the small bowel backwards from the terminal ileum to the ligament of Treitz. Other than the dilated small bowel no other gross abnormalities were identified. The trocars were all removed and the abdomen desufflated. The fascia the camera port was closed using 0 Vicryl in a [id number] fashion. All wounds were irrigated and closed using 4-0 Monocryl. Marcaine with epinephrine was injected around them for postoperative analgesia skin glue used as a dressing. The patient was awakened extubated and transferred to recovery in stable condition. I attest to the content of the Intraoperative Record and any orders documented therein. Any exceptions are noted below.
--- NOTE | 2024-12-27 18:42 | Anesthesiology Progress Note ---
Date of Service December 27, 2024 Anesthesia Post Procedure Vital Signs Vital Signs: Temp Pulse Pulse Resp BP BP Pulse Ox 12/27/24 18:12 36.8 C 75 18 135/63 98 12/27/24 15:39 36.8 C 70 14 172/81 H 97 12/27/24 07:26 36.9 C 69 17 180/72 H 95 12/26/24 23:40 36.8 C 63 16 135/70 95 O2 Del Method O2 Flow Rate 12/27/24 18:12 Oxymask 6 12/27/24 15:39 Room Air 12/27/24 07:26 Room Air 12/26/24 23:40 Room Air Pain Intensity Abdomen: Pain Intensity: 4 Head: Pain Intensity: 10 Transfer of Care Handoff Completed per policy Notes Mental Status: alert / awake / arousable and participated in evaluation Patient Amnestic to Procedure: Yes Nausea / Vomiting: adequately controlled Pain: adequately controlled Airway Patency, RR, SpO2: stable & adequate BP & HR: stable & adequate Hydration State: stable & adequate Anesthetic Complications: no major complications apparent and Pt Satisfied with anesthetic care
[2024-12-27] MEDS: HYDROmorphone INJ 0.5 MG/0.5 ML SYR IV STA ×2 (18:55→19:17)
[2024-12-27] MEDS: HYDROmorphone INJ 0.5 MG/0.5 ML SYR ONE (18:56)
[2024-12-28 06:08] LABS: Hematocrit (blood only) 33.0 % (37.0-47.0); Hemoglobin 11.1 g/dL (12.0-16.0); Mean Corpuscular Hemoglobin 28.7 pg (25.0-34.0); Mean Corpuscular Volume 85.3 fL (80.0-100.0); Platelet Count 208 K/uL (130-400); RDW Standard Deviation 40.2 fL (36.4-46.3); Red Blood Count 3.87 M/uL (4.20-5.40); White Blood Count 8.03 K/ul (4.8-10.8)
[2024-12-28 06:11] LABS: Anion Gap 5.0 (3-11); Blood Urea Nitrogen 5.0 mg/dl (6-23); Calcium 8.1 mg/dl (8.6-10.3); Carbon Dioxide 32.0 mmol/L (21-32); Chloride 105.0 mmol/L (98-107); Creatinine Clr Calc Pharmacy 95.2 ml/min; Glucose 135.0 mg/dl (70-99(Fasting)); Potassium 3.4 mmol/L (3.5-5.1); Sodium 142.0 mmol/L (136-145)
--- NOTE | 2024-12-28 07:22 | Surgery Progress Note ---
Date of Service December 28, 2024 Assessment & Plan (1) Small bowel obstruction: Plan: Doing well postoperative day #1 Bowel function returning already. Will DC NG tube and initiate clear liquids [facility] covering for the weekend if any questions Admission and Anticipated Discharge Date Admission Date: December 23, 2024 Subjective Patient doing well overall. Surgical discomfort manageable. She did have a large bowel movement. Less distended and no nausea Physical Exam Physical Exam: Alert no acute distress Abdomen with much less distention than yesterday. Incisions look good Results & Data Vital Signs (Past 12 Hours) Vital Signs Temp Pulse Pulse Resp BP Pulse Ox O2 Del Method 12/28/24 03:00 36.8 C 69 16 127/68 94 Room Air 12/27/24 23:00 36.8 C 76 16 142/81 H 97 Nasal Cannula 12/27/24 22:00 36.8 C 78 16 141/84 H 94 Nasal Cannula 12/27/24 21:00 36.6 C 70 16 147/72 H 98 Room Air, Nasal Cannula 12/27/24 20:39 36.8 C 72 14 146/71 H 98 Nasal Cannula 12/27/24 20:05 Nasal Cannula 12/27/24 19:50 83 20 148/72 H 97 Nasal Cannula 12/27/24 19:40 78 20 151/70 H 97 Nasal Cannula 12/27/24 19:30 36.7 C 71 13 143/76 H 97 Nasal Cannula O2 Flow Rate 12/28/24 03:00 12/27/24 23:00 2 12/27/24 22:00 2 12/27/24 21:00 2 12/27/24 20:39 2 12/27/24 20:05 2 12/27/24 19:50 2 12/27/24 19:40 2 12/27/24 19:30 2 PG Care Time/CCT Total # of Minutes Spent Total Time Spent with Patient: Total time spent is greater than 50% in coordination of care (as documented) at patient's floor/unit and/or counseling patient: Coding Level of Care Code 49343 Post Operative Follow-Up Diagnoses Small bowel obstruction K56.609
--- NOTE | 2024-12-28 08:26 | Hospitalist Progress Note ---
Date of Service December 28, 2024 Assessment & Plan (1) Small bowel obstruction: (2) Prediabetes: (3) Hypokalemia: Plan The patient is a 79-year-old female past medical history including sleep disorder, B12 deficiency, mood disorder, GERD, asthma, hypertension, vitamin D deficiency, and hypothyroidism. She reports that about 5 PM earlier this evening she developed abdominal pain, and shortly thereafter had several episodes of vomiting. Due to persistence of the abdominal pain and vomiting, she presented to the ED for assessment. Evaluation in ED included CT scan of the abdomen pelvis which noted small bowel obstruction. She was referred for evaluation for admission and admitted to hospital service. Significant laboratories: WBC 10.4, potassium 3.4, glucose 177, urine specific gravity is greater than 1.045. From the ED patient received the following: Normal saline 1 L bolus, Zofran 4 mg IV, morphine 4 mg IV x 2. #Small bowel obstruction CTAP: mildly dilated ileal loops w/ few air fluid levels, transition point is in right pelvic cavity suggestive of SBO Supportive care NG tube inserted on the evening of 12/24, and patient reports significant improvement in her symptoms following insertion Still no BMs yet today on 12/25; still not passing gas Maintain n.p.o. status IVF switched from NSS -> D5LR at 80 mL/hr Procalcitonin negative; no leukocytosis; afebrile; hemodynamically stable; discontinue Zosyn IV famotidine daily IV Protonix daily Pain regimen: Tylenol, Toradol, Morphine for severe pain General Surgery consult appreciated Underwent laparotomy for high-grade SBO on 12/27 Will plan to DC NG tube and initiate clear liquids on 12/28 If she tolerates clear liquids, will advance diet as tolerated #Hypokalemia | hypomagnesemia Continue repletion with K riders and magnesium sulfate IV as needed Suspected due to GI losses (NG tube, diarrhea, vomiting) #Prediabetes A1c 6.1% on 12/24/2024 Hold metformin NovoLog SSI BSG q6h while NPO / on D5LR Adjust regimen as needed #Asthma/hypoxia Incentive spirometry every hour while awake Continue usual inhalers Advair discus or equivalent albuterol HFA 2 puffs every 6 hours as needed Have DuoNebs available to use every 2 hours PRN #Mood disorder Hold sertraline #Hypothyroidism Resume levothyroxine after able to take p.o. Disposition: Continued stay on MedSurg while advancing diet Admission and Anticipated Discharge Date Admission Date: December 23, 2024 Supervising Physician Co-Signing Physician Notes Attending Attestation: Chart reviewed, care plan d/w PA Ethan Ruiz. I agree w/ the jones components of his documentation. Faraz Damon MD Subjective Mrs. Colbert thought she was doing well after the surgery. She reports she slept "like a log", and did not have any abdominal pain overnight. However, she had clear liquids for breakfast this morning (few sips of broth, half a cup of coffee with water, and orange Jell-O), and was initially feeling well, but then got up to use the restroom and felt nauseous. She began having multiple episodes of diarrhea (runny/dark green), and had to vomit while she was on the toilet. She denies any pain after eating, but reports belching and nausea. ROS: Patient endorses abdominal bloating, nausea, vomiting, and diarrhea Patient denies fevers overnight, chest pain, SOB, cough, abdominal pain, burning with urination, melena, or blood in the urine or stool. Addendum: Patient reassessed 1 hour later, and is doing much better after receiving IV Zofran and famotidine. She is still having some tenderness to palpation around her abdominal surgical site, but denies any drainage overnight or overt abdominal pain. Review of Systems Review of Systems: See HPI above Physical Exam Physical Exam: General: Patient appears acutely distressed while sitting upright on the toilet; vomiting dark green bile in the emesis bag; non-toxic appearing; cooperative; SpO2 93% on RA HEENT: normocephalic, atraumatic; NG tube unhooked, but still in place; PERRLA; vision and hearing intact Reassessed patient at bedside approximately 1 hour later General: Patient is doing better, laying in bed in no acute distress; NG tube still in place; SpO2 93% on RA Neck: supple; trachea midline Skin: warm, dry without signs of tenting; no cyanosis; no rashes, bruising, lesions, or erythema noted CV: chest wall NTP; RRR; S1/S2 normal; no murmurs/rubs/gallops; pulses intact and symmetric at radial, DP, and PT Lungs: no acute respiratory distress; symmetrical chest wall expansion; clear breath sounds across all lung hagan w/o adventitious sounds; no wheezing ABD: Soft, mildly TTP surrounding surgical sites, which do not show signs of erythema, drainage, or acute infection; moderate distention still present; hyperactive BS are now present; no rebound/guarding MSK: no tics or fasciculations; no edema noted in the LEs b/l, nonerythematous Neuro: A&Ox3; normal mood and affect; fluent speech; sensation intact and symmetric in the LEs b/l Results & Data Results & Data Vital Signs (Past 12 Hours) Vital Signs Temp Pulse Pulse Resp BP Pulse Ox O2 Del Method 12/28/24 08:05 36.1 C L 64 18 136/72 96 Room Air 12/28/24 03:00 36.8 C 69 16 127/68 94 Room Air 12/27/24 23:00 36.8 C 76 16 142/81 H 97 Nasal Cannula 12/27/24 22:00 36.8 C 78 16 141/84 H 94 Nasal Cannula 12/27/24 21:00 36.6 C 70 16 147/72 H 98 Room Air, Nasal Cannula 12/27/24 20:39 36.8 C 72 14 146/71 H 98 Nasal Cannula O2 Flow Rate 12/28/24 08:05 12/28/24 03:00 12/27/24 23:00 2 12/27/24 22:00 2 12/27/24 21:00 2 12/27/24 20:39 2 PG Care Time/CCT Total # of Minutes Spent Total Time Spent with Patient: Total time spent is greater than 50% in coordination of care (as documented) at patient's floor/unit and/or counseling patient: Coding [place] [address] SUB INP/OBS CARE 3/50MIN Patient Type Established Medical Decision Making High Complexity Diagnoses Small bowel obstruction K56.609 Prediabetes R73.03 Hypokalemia E87.6
[2024-12-28 08:54] LABS: Magnesium 1.4 mg/dl (1.7-2.4)
[2024-12-28] MEDS ORDERED: ACETAMINOPHEN 1,000 MG/100 ML VIAL IV PRN (09:17)
[2024-12-28] MEDS ORDERED: MoRPHine SULFATE 2 MG/ML CARP IV PRN (09:17)
[2024-12-28] MEDS: MoRPHine SULFATE 4 MG/ML 1 ML CARP\\VIAL IV PRN (09:33)
[2024-12-28] MEDS: POTASSIUM CHLORIDE / WTR 10 MEQ/100 ML PLCT IV ONE (11:00)
[2024-12-28] MEDS: MAGNESIUM SULFATE / D5W 1 GM/100 ML BAG IV SCH (11:01)
[2024-12-28] MEDS: KETOROLAC TROMETHAMINE 15 MG/ML VIAL IV PRN (14:04)
[2024-12-28] MEDS ORDERED: Nursing to Pharmacy Communication SCH (16:15)
[2024-12-28] MEDS: INSULIN ASPART PER UNIT CHARGE SC SCH (17:17)
[2024-12-29 07:38] VITALS: RESP 18
[2024-12-29] MEDS ORDERED: ACETAMINOPHEN 325 MG TAB PO PRN (08:50)
[2024-12-29] MEDS ORDERED: SPIRONOLACTONE/HCTZ 25-25 PO SCH (09:00)
[2024-12-29 09:03] LABS: Hematocrit (blood only) 40.6 % (37.0-47.0); Hemoglobin 12.9 g/dL (12.0-16.0); Immature Granulocytes # (auto) 0.05 K/uL (0.01-0.20); Immature Granulocytes % (auto) 0.7 %; Mean Corpuscular Hemoglobin 27.5 pg (25.0-34.0); Mean Corpuscular Volume 86.6 fL (80.0-100.0); Platelet Count 248 K/uL (130-400); RDW Standard Deviation 41.5 fL (36.4-46.3); Red Blood Count 4.69 M/uL (4.20-5.40); White Blood Count 7.62 K/ul (4.8-10.8)
[2024-12-29 09:20] LABS: Anion Gap 7.0 (3-11); Blood Urea Nitrogen 6.0 mg/dl (6-23); Calcium 8.4 mg/dl (8.6-10.3); Carbon Dioxide 33.0 mmol/L (21-32); Chloride 103.0 mmol/L (98-107); Creatinine Clr Calc Pharmacy 81.6 ml/min; Glucose 105.0 mg/dl (70-99(Fasting)); Magnesium 1.9 mg/dl (1.7-2.4); Potassium 3.6 mmol/L (3.5-5.1); Sodium 143.0 mmol/L (136-145)
--- NOTE | 2024-12-29 09:46 | Hospitalist Progress Note ---
Date of Service December 29, 2024 Assessment & Plan (1) Small bowel obstruction: (2) Prediabetes: (3) Lower extremity edema: (4) Contact dermatitis: Plan The patient is a 79-year-old female past medical history including sleep disorder, B12 deficiency, mood disorder, GERD, asthma, hypertension, vitamin D deficiency, and hypothyroidism. She reports that about 5 PM earlier this evening she developed abdominal pain, and shortly thereafter had several episodes of vomiting. Due to persistence of the abdominal pain and vomiting, she presented to the ED for assessment. Evaluation in ED included CT scan of the abdomen pelvis which noted small bowel obstruction. She was referred for evaluation for admission and admitted to hospital service. Significant laboratories: WBC 10.4, potassium 3.4, glucose 177, urine specific gravity is greater than 1.045. From the ED patient received the following: Normal saline 1 L bolus, Zofran 4 mg IV, morphine 4 mg IV x 2. #Small bowel obstruction CTAP: mildly dilated ileal loops w/ few air fluid levels, transition point is in right pelvic cavity suggestive of SBO Supportive care General Surgery consult appreciated Underwent laparotomy for high-grade SBO on 12/27 Patient now having regular bowel movements (diarrhea) and passing gas on 12/28 and 12/29 Procalcitonin negative; no leukocytosis; afebrile; hemodynamically stable; discontinue Zosyn IV Protonix daily Pain regimen: Tylenol, Toradol, Morphine for severe pain NG tube removed on 12/29 Transition back to p.o. medications gradually Patient tolerating clear liquids well on 12/29, advance to full liquid for lunch and possible solids for dinner #LE edema +1 pitting edema around the ankles noticed on 12/29; nonpitting edema extending up to the knees bilaterally Suspected due to IVF while in the hospital Restart hydrochlorothiazide now that she is back on p.o. medication #Contact dermatitis Mild; surrounding her incision sites No purulent drainage appreciated Patient reports it is not painful or itchy, but just wanted to make note of it Continue to monitor #Prediabetes A1c 6.1% on 12/24/2024 Hold metformin NovoLog SSI BSG ACHS Adjust regimen as needed #Asthma/hypoxia Incentive spirometry every hour while awake Continue usual inhalers Advair discus or equivalent albuterol HFA 2 puffs every 6 hours as needed Have DuoNebs available to use every 2 hours PRN #Mood disorder Hold sertraline #Hypothyroidism Resume levothyroxine after able to take p.o. #Hypokalemia | hypomagnesemia (resolved) Disposition: Continued stay on MedSurg while advancing diet; hopeful discharge home tomorrow on 12/30 barring no setbacks Admission and Anticipated Discharge Date Admission Date: December 23, 2024 Supervising Physician Co-Signing Physician Notes Attending Attestation: Chart reviewed, care plan d/w PA Ethan Ruiz. I agree w/ the jones components of his documentation. Faraz Damon MD Subjective Mrs. Colbert is in good spirits this morning. She tolerated her clear liquid diet well last night. No nausea, vomiting, abdominal pain, or sensation of abdominal bloating after eating her dinner last night. She reports she feels "hungry" this morning, and feels like she is ready to have NG tube taken out. She also reports passing plenty of gas, but is still having dark green/"algae colored" diarrhea. No blood in her urine or stool. She does note that she has had swelling in her legs that have increased over the course of her hospital stay, and normally she takes hydrochlorothiazide for lower extremity edema, which she has been on hold. Her only other complaint is she is having some redness around her surgical incision sites; no itching. ROS: Patient endorses lower extremity edema, dark green diarrhea, and redness around surgical site. Patient denies fevers overnight, lightheadedness when walking, chest pain, SOB, cough, abdominal pain, abdominal bloating after eating, recurrence of nausea or vomiting, melena, or bright red blood in the urine or stool. Review of Systems 2 Review of Systems: See HPI above Physical Exam 2 Physical Exam: General: NAD; NG tube still in place; pleasant affect; cooperative; nontoxic- appearing; SpO2 92% on RA HEENT: normocephalic, atraumatic; NG tube unhooked, but still in place; PERRLA; vision and hearing intact Neck: supple; trachea midline Skin: warm, dry without signs of tenting; no cyanosis; no rashes, bruising, lesions, or erythema noted CV: chest wall NTP; RRR; S1/S2 normal; no murmurs/rubs/gallops; pulses intact and symmetric at radial, DP, and PT Lungs: no acute respiratory distress; symmetrical chest wall expansion; clear breath sounds across all lung hagan w/o adventitious sounds; no wheezing ABD: Soft, surgical site is NTP; erythema/contact dermatitis noted around the incision sites (see photos below) not warm to touch; no signs of acute drainage from incisions; moderate distention still present; hyperactive BS are now present; no rebound/guarding MSK: no tics or fasciculations; no edema noted in the LEs b/l, nonerythematous Neuro: A&Ox3; normal mood and affect; fluent speech; sensation intact and symmetric in the LEs b/l Results & Data Results & Data Vital Signs (Past 12 Hours) Vital Signs Temp Pulse Pulse Resp BP BP Pulse Ox 12/29/24 07:37 36.7 C 75 18 149/78 H 92 12/28/24 23:23 36.6 C 79 16 127/71 93 O2 Del Method 12/29/24 07:37 Room Air 12/28/24 23:23 Room Air PG Care Time/CCT Total # of Minutes Spent Total Time Spent with Patient: Total time spent is greater than 50% in coordination of care (as documented) at patient's floor/unit and/or counseling patient: Coding [place] [address] SUB INP/OBS CARE 2/35MIN Patient Type Established Medical Decision Making Moderate Complexity Diagnoses Small bowel obstruction K56.609 Prediabetes R73.03 Lower extremity edema R60.0 Contact dermatitis L25.9
--- NOTE | 2024-12-29 09:50 | Surgery Progress Note ---
Date of Service December 29, 2024 Assessment & Plan (1) Small bowel obstruction: Plan: Doing well postoperative day #2 Bowel function returning already. DC NG tube and initiate full liquids Admission and Anticipated Discharge Date Admission Date: December 23, 2024 Subjective doing well. flatus and BMs overnight. no pain. hungry. Physical Exam Physical Exam: Alert no acute distress Abdomen with much less distention than yesterday. Incisions look good Results & Data Vital Signs (Past 12 Hours) Vital Signs Temp Pulse Pulse Resp BP BP Pulse Ox 12/29/24 07:37 36.7 C 75 18 149/78 H 92 12/28/24 23:23 36.6 C 79 16 127/71 93 O2 Del Method 12/29/24 07:37 Room Air 12/28/24 23:23 Room Air
[2024-12-29] MEDS: hydroCHLOROthiazide 25 MG TAB PO SCH (10:22)
[2024-12-29] MEDS: FAMOTIDINE 20 MG TAB PO SCH (10:22)
[2024-12-29] MEDS: SPIRONOLACTONE 25 MG TAB PO SCH (10:22)
[2024-12-29] MEDS: LEVOTHYROXINE SODIUM 125 MCG TABLET PO SCH (10:22)
[2024-12-29] MEDS: SERTRALINE HCL 100 MG TABLET PO SCH (10:22)
[2024-12-30 06:24] LABS: Hematocrit (blood only) 36.5 % (37.0-47.0); Hemoglobin 12.0 g/dL (12.0-16.0); Immature Granulocytes # (auto) 0.05 K/uL (0.01-0.20); Immature Granulocytes % (auto) 0.9 %; Mean Corpuscular Hemoglobin 28.3 pg (25.0-34.0); Mean Corpuscular Volume 86.1 fL (80.0-100.0); Platelet Count 218 K/uL (130-400); RDW Standard Deviation 41.5 fL (36.4-46.3); Red Blood Count 4.24 M/uL (4.20-5.40); White Blood Count 5.62 K/ul (4.8-10.8)
[2024-12-30 06:50] LABS: Anion Gap 6.0 (3-11); Blood Urea Nitrogen 7.0 mg/dl (6-23); Calcium 8.2 mg/dl (8.6-10.3); Carbon Dioxide 33.0 mmol/L (21-32); Chloride 105.0 mmol/L (98-107); Creatinine Clr Calc Pharmacy 86.9 ml/min; Glucose 98.0 mg/dl (70-99(Fasting)); Potassium 3.4 mmol/L (3.5-5.1); Sodium 144.0 mmol/L (136-145)
[2024-12-30 07:13] VITALS: BP 165/83; PULSE 69; TEMP 98.6; O2SAT 95
--- NOTE | 2024-12-30 09:50 | Discharge Summary ---
Discharge Summary Date of Service December 30, 2024 Principal Dx & Hospital Course #1 = Principal Diagnosis (1) Small bowel obstruction: (2) Prediabetes: (3) Lower extremity edema: (4) Contact dermatitis: Plan The patient is a 79-year-old female past medical history including sleep disorder, B12 deficiency, mood disorder, GERD, asthma, hypertension, vitamin D deficiency, and hypothyroidism. She reports that about 5 PM earlier this evening she developed abdominal pain, and shortly thereafter had several episodes of vomiting. Due to persistence of the abdominal pain and vomiting, she presented to the ED for assessment. Evaluation in ED included CT scan of the abdomen pelvis which noted small bowel obstruction. She was referred for evaluation for admission and admitted to hospital service. Significant laboratories: WBC 10.4, potassium 3.4, glucose 177, urine specific gravity is greater than 1.045. From the ED patient received the following: Normal saline 1 L bolus, Zofran 4 mg IV, morphine 4 mg IV x 2. #Small bowel obstruction CTAP: mildly dilated ileal loops w/ few air fluid levels, transition point is in right pelvic cavity suggestive of SBO Patient underwent small bowel follow-through on 12/27 which revealed a high- grade SBO with prolonged retention of contrast General Surgery consult appreciated Underwent laparotomy for high-grade SBO on 12/27 Patient now having regular bowel movements (diarrhea) and passing gas 12/28 - 12/30 Procalcitonin negative; no leukocytosis; afebrile; hemodynamically stable; discontinued Zosyn NG tube removed on 12/29 Transition back to p.o. medications Patient's diet was advanced from clear liquids, to full liquids, to solids without any setbacks (no abdominal pain, bloating, or nausea/vomiting) Given advancement of diet, normal vital signs, and no elevated white blood cell count indicate signs of severe infection, feel she is safe to return home at this time #LE edema +1 pitting edema around the ankles noticed on 12/29; nonpitting edema extending up to the knees bilaterally Suspected due to IVF while in the hospital IV Lasix 20 mg x 1 Additional potassium given prior to discharge Continue HCTZ as an outpatient #Prediabetes A1c 6.1% on 12/24/2024 Hold metformin NovoLog SSI BSG ACHS Adjust regimen as needed #Asthma/hypoxia Incentive spirometry every hour while awake Continue usual inhalers Advair discus or equivalent albuterol HFA 2 puffs every 6 hours as needed Have DuoNebs available to use every 2 hours PRN #Mood disorder Resume sertraline #Hypothyroidism Resume levothyroxine that she is able to take p.o. #Hypokalemia | hypomagnesemia (improving) Recommend follow-up BMP prior to transitional care appointment to assess potassium levels Day of discharge 12/30: Patient is mildly hypertensive at 165/83; vitals otherwise stable. Mrs. Colbert is in good spirits this morning. She is up ambulating around the room. She tolerated her dinner last night, and ate breakfast this morning (scrambled eggs, pancakes, and milk) without any setbacks. She denies any abdominal pain, abdominal bloating, nausea, or vomiting after eating. Overall, she reports she feels much better than when she originally came into the hospital. She still having green diarrhea intermittently, but feels like she is passing gas without needing to go to the bathroom. Her only concern at this time is that her lower extremities feel "puffy". No redness or pain in her legs. No drainage from her surgical incision sites. She is amenable to taking a dose of Lasix prior to discharge. Overall, she feels very well, and is excited to go home today if possible. Her daughters (Katya and Ashleigh) are planning to come to the hospital later today and transport her home. ROS: Patient endorses bilateral lower extremity edema, and lingering diarrhea. Patient denies fevers overnight, chills, night sweats, dizziness/lightheadedness with walking, chest pain, SOB, cough, pleuritic CP, abdominal pain after eating, nausea, vomiting, bright red blood in the urine or stool, or pain in the legs. Disposition: Discharge home Notes For Next Care Provider Patient hospitalized for high-grade small bowel obstruction. While conservative measures/NG tube were initially trialed, patient ultimately had to undergo laparotomy on 12/27. She improved following the surgery, and was advanced to a regular diet prior to discharge. Admission HPI Per Admitting Provider The patient is a 79-year-old female past medical history including sleep disorder, B12 deficiency, mood disorder, GERD, asthma, hypertension, vitamin D deficiency, and hypothyroidism. She reports that about 5 PM earlier this evening she developed abdominal pain, and shortly thereafter had several episodes of vomiting. Due to persistence of the abdominal pain and vomiting, she presented to the ED for assessment. Evaluation in ED included CT scan of the abdomen pelvis which noted small bowel obstruction. She was referred for evaluation for admission and admitted to hospital service. Significant laboratories: WBC 10.4, potassium 3.4, glucose 177, urine specific gravity is greater than 1.045. From the ED patient received the following: Normal saline 1 L bolus, Zofran 4 mg IV, morphine 4 mg IV x 2. Admission Exam Per Admitting Provider The patient is awake, alert and oriented 3, well developed and well nourished, normocephalic and atraumatic, lying in bed and in no acute distress. HEENT--PERRL, EOMI, mucous membranes and oropharynx mildly dry. Neck--supple. No JVD. No bruits. Thyroid normal, trachea midline, no adenopathy. Heart--normal S1 and S2. No murmurs, rubs or gallops. Lungs--clear bilaterally, no respiratory distress, no accessory muscle use. Abdomen--decreased bowel sounds. Mildly distended. Nontender post morphine. No hernias or masses, no organomegaly. Extremities--no cyanosis or clubbing. No edema. There are good distal pulses b/l. Dermatologic--normal skin turgor, normal color, no abnormal lymph nodes, no rash. Neurologic--cranial nerves II through XII grossly intact. Rheumatologic--normal range of motion. Psychiatric--normal affect. Discharge Exam General: No acute distress; pleasant affect; ambulating around the room independently; cooperative; nontoxic-appearing; SpO2 95% on RA HEENT: normocephalic, atraumatic; NG tube unhooked, but still in place; PERRLA; vision and hearing intact Neck: supple; trachea midline Skin: warm, dry without signs of tenting; no cyanosis; no rashes, bruising, lesions, or erythema noted CV: chest wall NTP; RRR; S1/S2 normal; no murmurs/rubs/gallops; pulses intact and symmetric at radial, DP, and PT Lungs: no acute respiratory distress; symmetrical chest wall expansion; clear breath sounds across all lung hagan w/o adventitious sounds; no wheezing ABD: Soft, surgical sites are NTP; mild distention, but significantly improved from prior; erythema/contact dermatitis noted around the incision sites, but receding from prior; not warm to touch; no signs of acute drainage from incisions; BS are now present; no rebound/guarding MSK: no tics or fasciculations; +1 pitting edema extending from the dorsal aspect of the feet bilaterally up to the mid calfs, nonerythematous Neuro: A&Ox3; normal mood and affect; fluent speech; sensation intact and symmetric in the LEs b/l assessed via light touch Discharge Plan Discharge Items Patient Disposition: Home - Self-Care Reason For Visit: SBO Discharge Diagnosis: diagnostic laparoscopy release of adhesion causing small bowel obstruction Condition on Discharge: Fair Activity: Per Instructions section Lifting: No more than 10 pounds Bathing Comment: may shower; no soaking in tubs/pools x 2 weeks Exercise/Sports: Wait until after follow-up appointment Driving/Machine Use: no driving while on narcotics for pain Non-emergency contact: Primary Care Provider and Surgeon Call non-emergency contact if: you have any medication questions, your symptoms worsen, your pain is not controlled, you have a fever, your temperature is above 101.5, your wound has increased redness, your wound has increased drainage and your wound pain has increased Follow-up/Referrals: Benjamin Pizano DO [Surgeon] - (please call to schedule follow up in the office in 2 weeks) Israel Conway MD [Primary Care Provider] - Diet: Carb Consistent or DM2 and Low Fiber Addtl Attending Provider Instructions: SPECIAL CARE INSTRUCTIONS: * You have skin glue over your incisions called dermabond. you may shower with this on. It will tend to dissolve and fall off within a couple weeks. Do not pick at the skin glue * You may shower. NO soaking in pools or baths for 2 weeks * No lifting greater than 10lbs. No strenuous exercise until cleared by surgeon. Light walking is accepted. * No driving while taking narcotic pain medication; wait at least 3 days * No drinking alcohol while taking narcotic pain medication * May use Ibuprofen/Tylenol over the counter for pain as tolerated. Do not exceed 3grams of Tylenol per 24 hours * Expect some swelling and bruising. * Diet- you may resume your regular diet Call your doctor if: * Temperature above 101 degrees, nausea/vomiting, fever/chills * Pain not relieved by pain medicine ordered * There is increased drainage or redness from any incision * You have any unanswered questions or concerns [phone]. FOLLOW UP VISIT: If not already scheduled, please call the office for a follow-up visit. 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 Imaging of your abdomen on arrival revealed a small bowel obstruction. Initially, conservative measures were taken including bowel rest, NG tube, IV fluids, IV antinausea medications, and IV pain control. However, a small bowel follow-through study was conducted on 12/27, which revealed that your obstruction was high-grade, and we elected to move forward surgery (called a laparotomy) on 12/27. Following surgery, your symptoms gradually improved. You were advanced from a clear liquid, to a full liquid, to a regular diet. On day of discharge 12/30, you report full resolution of symptoms when eating a solid diet. Given you do not have an elevated white blood cell count to indicate signs of severe infection, and your vitals are currently stable, we feel that you are safe to return home at this time. You may resume all previous medications as they were taken prior to hospitalization. Please plan to follow-up with your PCP in the next 7 to 10 days for a transitional care appointment. For pain control, we recommend that you alternate between taking Tylenol (500 mg tablets) and [id number] ibuprofen (200 mg tablets) every 6 hours as needed for pain. Please do not exceed 3000 mg of Tylenol, or 1200 mg of ibuprofen in a 24-hour period. If you develop any new or worsening symptoms, such as fever, chills, intractable nausea/vomiting, inability to keep down liquids/pills, severe abdominal pain, decreased urinary output, or you begin to not pass gas, please return to the emergency department immediately. It was a pleasure taking care of you. Please reach out with any questions or concerns. Sincerely, The Hospital medicine team at [facility] Pending Studies at Discharge: No Stand-Alone Forms: My [facility] Medications and DC Order Prescriptions: Continued ascorbic acid (vitamin C) 250 mg tablet 250 mg PO DAILY cholecalciferol (vitamin D3) 50 mcg (2,000 unit) capsule 50 mcg PO DAILY aspirin 81 mg capsule 81 mg PO DAILY bisacodyl [Women's Gentle Laxative(bisac)] 5 mg tablet,delayed release (DR/EC) 5 mg PO DAILY PRN (Reason: constipation) spironolacton-hydrochlorothiaz 25-25 mg tablet 1 tab PO DAILY Qty: 90 3RF sertraline 100 mg tablet 100 mg PO DAILY Qty: 90 3RF metformin 500 mg tablet 500 mg PO BID Qty: 180 3RF levothyroxine 125 mcg tablet 125 mcg PO DAILY Qty: 90 3RF fluticasone propion-salmeterol [Advair Diskus] 250-50 mcg/dose blister with device 1 inh inhalation BID Qty: 3 3RF albuterol sulfate [Ventolin HFA] 90 mcg/actuation HFA aerosol inhaler 2 puff inhalation Q6H PRN (Reason: shortness of breath or wheezing) Qty: 6.7 6RF vitamin B complex Tablet 1 tab PO DAILY calcium carbonate 500 mg calcium (1,250 mg) Tablet,Chewable 500 mg PO DIRECTED PRN (Reason: INDIGESTION/HEARTBURN) Discharge Orders: Discharge Order (Routine); Ordered 12/30/24 Ordered By: Ethan Billy/Other Patient Handouts: Small Bowel Obstruction, Prediabetes, 5 Steps for Eating Healthier Admission Data Admit Date/Time: 12/23/24 06:33 Attending Provider: Faraz Damon Admit Provider: Rehan Brantley Primary Care Provider: Israel Conway Other Providers: Rehan Brantley; Henry Fischer Other Interventions: Discharge Summary Assessment (RN) Last Done: 12/30/24 11:24 Hospital Stay Data Consultations 12/23/24 05:52 ED Decision to Admit Stat 12/23/24 06:30 Consult General Surgery Routine Procedures Performed Operation Date: 12/27/24 15:10 Actual Procedures p Diagnostic Laparoscopy, Enterolysis, Release of Small Bowel Obstruction(Not Applicable) - Benjamin Pizano, Diagnostic Imagining Performed 12/23/24 02:27 CT Abd and Pelvis [CT abd pelvis IV con only] Stat 12/27/24 08:30 [place] small bowel follow through Routine Discharge Instructions Given to Patient (Per Discharging Provider) SPECIAL CARE INSTRUCTIONS: * You have skin glue over your incisions called dermabond. you may shower with this on. It will tend to dissolve and fall off within a couple weeks. Do not pick at the skin glue * You may shower. NO soaking in pools or baths for 2 weeks * No lifting greater than 10lbs. No strenuous exercise until cleared by surgeon. Light walking is accepted. * No driving while taking narcotic pain medication; wait at least 3 days * No drinking alcohol while taking narcotic pain medication * May use Ibuprofen/Tylenol over the counter for pain as tolerated. Do not exceed 3grams of Tylenol per 24 hours * Expect some swelling and bruising. * Diet- you may resume your regular diet Call your doctor if: * Temperature above 101 degrees, nausea/vomiting, fever/chills * Pain not relieved by pain medicine ordered * There is increased drainage or redness from any incision * You have any unanswered questions or concerns [phone]. FOLLOW UP VISIT: If not already scheduled, please call the office for a follow-up visit. Office Supervising Physician Co-Signing Physician Notes Attending Attestation and Discharge Note: Chart reviewed, discharge care plan d/w ROMY Ruiz. I agree w/ the jones components of his discharge documentation. Of note - I did not perform a bedside visit or exam on day of discharge. 79yo female with mood disorder, GERD, asthma, hypertension, vitamin D deficiency, and hypothyroidism. Her only surgical history was that of ectopic . Presented with abdominal pain & vomiting. CT a/p at ER presentation showed SBO with transition point in the right pelvis. NG Tube was placed. Gen surg was consulted. Patient did not improve with conservative Rx. Underwent UGI series with small bowel follow-through on 12/27 which revealed a high-grade SBO with prolonged retention of contrast. Subsequently underwent laparotomy for high-grade SBO on 12/27. During the surgery a tight adhesive band was found as the cause of the SBO. No other abnormalities were seen. Post-op she overall did well. NG tube was ultimately removed, passed flatus starting 12/28, clear liquid diet was started, then diet was advanced without difficulty. Prior to d/c home she was having bowel movements. Other medical problems remained stable while here. Faraz Siuta MD Total Time Total Time Spent Total Time Spent (In Minutes): 35 Coding [place] [address] INP/OBS DISCH >30 MIN Patient Type Established Medical Decision Making Moderate Complexity Diagnoses Small bowel obstruction K56.609 Prediabetes R73.03 Lower extremity edema R60.0 Contact dermatitis L25.9
[2024-12-30] MEDS: FUROSEMIDE INJ 20 MG/2 ML VIAL IV ONE (09:57)
[2024-12-30] MEDS: POTASSIUM CHLORIDE / WTR 10 MEQ/100 ML PLCT IV ONE ×2 (10:02→11:40)
--- NOTE | 2024-12-30 10:50 | Surgery Progress Note ---
Date of Service December 30, 2024 Assessment & Plan (1) Small bowel obstruction: Plan: Doing well postoperative day #3 tolerating diet d/c to home f/u with Dr. Pizano in 1-2 weeks Admission and Anticipated Discharge Date Admission Date: December 23, 2024 Subjective doing well. continuing with flatus and BMs. no pain. tolerating diet. Physical Exam Physical Exam: Alert no acute distress Abdomen with much less distention than yesterday. Incisions look good Results & Data Vital Signs (Past 12 Hours) Vital Signs Temp Pulse Resp BP Pulse Ox O2 Del Method 12/30/24 07:10 37 C 69 18 165/83 H 95 Room Air
[2024-12-30] MEDS: SODIUM CHLORIDE 0.9% 500 ML IV SCH (10:54)
== END 2024-12-30 13:30 | disposition home or self-care (01) | DRG 336 ==
LOC: ED 02:05 → SUATTDRO 06:33 → 3E 06:33